=== PATIENT | female | born 1985 | race American Indian/Alaskan Native ===

== ENCOUNTER 2020-07-24 16:21 | Outpatient (CLI) | payer MEDICAID ==
[2020-07-24 18:46] VITALS: BP 114/61
[2020-07-24 19:08] LABS: Basophils % (Auto) 0.2 % (0.0-1.8); Eosinophils # (Auto) 0.1 K/mm3 (0.0-0.4); Hematocrit 29.4 % (30.3-42.9); Hemoglobin 9.8 gm/dl (10.1-14.3); Lymphocytes # (Auto) 1.2 K/mm3 (1.2-5.4); Lymphocytes % (Auto) 18.6 % (13.4-35.0); Mean Corpuscular HGB Conc 33 % (30-34); Mean Corpuscular Volume 86 fl (79-97); Monocytes # (Auto) 0.5 K/mm3 (0.0-0.8); Monocytes % (Auto) 7.8 % (0.0-7.3); Platelet Count 255 K/mm3 (140-440); Red Blood Count 3.42 M/mm3 (3.65-5.03); Red Cell Distribution Width 13.2 % (13.2-15.2)
--- NOTE | 2020-07-24 20:01 | Ultrasound Report ---
US OB BPP WO NON-STRESS US OB LIMITED INDICATION / CLINICAL INFORMATION: BPP and SAULO. COMPARISON: None available. FINDINGS: breathing movement = 2 Gross body movement = 2 tone = 2 Qualitative amniotic fluid volume = 2 Total biophysical score = 8/8 Amniotic fluid index is 10.0 cm. Presentation is Cephalic. heart rate is 144 beats per minute. IMPRESSION: biophysical profile = 8/8 Amniotic fluid index 10.0 cm, within normal limits Signer Name: Kaushal Hernandez MD Signed: 07/24/2020 7:57 PM Workstation Name: [id number]
--- NOTE | 2020-07-24 23:08 | Event Note ---
Date: 07/24/20 Term pt here to rule out labor per nurse report. Pt was 3cm in clinic and she is unchanged and station -3. pt allowed to ambulate and BPP/SAULO and CBC done and all wnl. Pt reassured that she is not rupture and currently not in labor. Labor precaution given and pt with reactive NST and pt desires . Pt discharged home.
== END 2020-07-24 19:55 | disposition home or self-care (01) ==
LOC: TRG 16:21 → APU 16:23 → TRG 18:15
PROVIDERS: ATTEND Obstetrics & Gynecology
DX: O62.4 Hypertonic, incoordinate, and prolonged uterine contractions (principal); Z3A.37 37 weeks gestation of pregnancy
CPT/HCPCS: 36415; 59025; 76815; 76819; 84112; 85025

== ENCOUNTER 2020-07-26 12:49 | Inpatient (IN) | payer MEDICAID ==
[2020-07-26] MEDS ORDERED: ePHEDrine SULFATE 50 MG/1 ML INJ IV PRN (14:25)
[2020-07-26] MEDS ORDERED: TERBUTALINE 1 MG/1 ML INJ SUB-Q PRN (14:25)
[2020-07-26] MEDS ORDERED: AMPICILLIN/NS 2 GM/100 ML 2 GM/100 ML BAG IV ONE (14:25)
[2020-07-26] MEDS ORDERED: BUTORPHANOL 2 MG/1 ML INJ IV PRN (14:30)
[2020-07-26] MEDS ORDERED: LACTATED RINGERS 1,000 ML IV SCH (14:30)
[2020-07-26] MEDS ORDERED: OXYTOCIN DRIP 30,000 MILLIUNITS/500 ML BAG IV ONE (15:23)
[2020-07-26 15:55] LABS: Hematocrit 30.1 % (30.3-42.9); Mean Corpuscular HGB Conc 33 % (30-34); Mean Corpuscular Volume 87 fl (79-97); Platelet Count 234 K/mm3 (140-440); Red Blood Count 3.47 M/mm3 (3.65-5.03); Red Cell Distribution Width 13.3 % (13.2-15.2)
[2020-07-26] MEDS ORDERED: OXYTOCIN DRIP 30 UNITS/500 ML BAG IV SCH (18:00)
--- NOTE | 2020-07-26 19:41 | History and Physical Report ---
History of Present Illness Date of examination: 07/26/20 Date of admission: 07/26/20 15:50 Chief complaint: labor pains History of present illness: Early entry to care at 5 3/7 weeks to [employer] [facility] [employer]. 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 History of for breech with successful . Past History Past Medical History: no pertinent history Past Surgical History: section, other (jaw surgery) [employer] History: abnormal PAP smear (LGSIL, +HPV), herpes Family/Genetic History: cancer (breast - mother) Social history: no significant social history, single - Obstetrical History Expected Date of Delivery: 08/11/20 Actual Gestation: 37 Week(s) 5 Day(s) : 5 Para: 3 Hx # Term Pregnancies: 3 Number of Pregnancies: 0 Spontaneous Abortions: 1 Induced : 0 Number of Living Children: 3 #1 Gender: Female year: 2,[birth year] Birthweight: 3.374 kg Method of Delivery: Vaginal Gestational age at delivery: 40 Complications: none #2 Infant Gender: Female year: 2,018 Birthweight: 2.92 kg Method of Delivery: Gestational age at delivery: 40 Complications: none #3 Gender: Male year: 2,019 Birthweight: 3.657 kg Method of Delivery: Gestational age at delivery: 40 Complications: none Medications and Allergies Allergies Allergy/AdvReac Type Severity Reaction Status Date / Time No Known Allergies Allergy Verified 07/24/20 16:41 Home Medications Medication Instructions Recorded Confirmed Last Taken Type Valtrex 1 tab PO Q8H 07/24/20 07/24/20 07/22/20 History Active Meds: Active Medications Butorphanol Tartrate (Butorphanol 2 Mg/1 Ml Inj) 2 mg IV Q2H PRN PRN Reason: Pain, Moderate(4-6) LABOR PAIN Ephedrine Sulfate (Ephedrine Sulfate 50 Mg/1 Ml Inj) 10 mg IV Q2M PRN PRN Reason: Hypotension Lactated Ringer's (Lactated Ringers) 1,000 mls @ 125 mls/hr IV DIRECT NICOLETTE Last Admin: 07/26/20 15:35 Dose: 125 mls/hr Documented by: Oxytocin/Sodium Chloride (Pitocin/Ns 30 Unit/500ml) 30 units in 500 mls @ 4 mls/hr IV TITR NICOLETTE; Protocol Last Titration: 07/26/20 16:45 Dose: 10 ml/hr, 10 mls/hr Documented by: Mineral Oil (Mineral Oil 30 Ml Oral Liqd) 30 ml PO QHS PRN PRN Reason: Constipation Terbutaline Sulfate (Terbutaline 1 Mg/1 Ml Inj) 0.25 mg SUB-Q ONCE PRN PRN Reason: Hyperstimulation/Hypertonicity Stop: 08/19/20 14:24 Review of Systems All systems: negative - Vital Signs Vital signs: Vital Signs Pulse Pulse Ox 98 H 97 07/26/20 13:21 07/26/20 13:21 Temp Pulse Resp BP Pulse Ox 98.4 F 101 H 17 110/57 100 07/26/20 19:27 07/26/20 19:34 07/26/20 19:27 07/26/20 19:27 07/26/20 19:34 - Physical Exam Breasts: Positive: normal Cardiovascular: Regular rate Lungs: Positive: Clear to auscultation, Normal air movement Abdomen: Positive: normal appearance, soft Genitourinary (Female): Positive: normal external genitalia, normal perenium Vagina: Positive: normal moisture, other (feels warm on SVE) Uterus: Positive: enlarged Anus/Rectum: Positive: normal perianal skin Extremities: Positive: normal - Obstetrical FHR: category 2 FHR comments: FHR up to 180s after AROM. Back down to 150s-160s with maternal position change. Mild variable decels noted after AROM. Uterine Contraction Monitor Mode: External Cervical Dilatation: 6.5 (Moderate amount of clear fluid upon AROM at 19:29) Cervical Effacement Percentage: 70 station: -2 Uterine Contraction Frequency (min): 3 Uterine Contraction Duration: 60 Uterine Contraction Pattern: Regular Uterine Tone Measurement Phase: Resting Uterine Contraction Intensity: Moderate Results Result Diagrams: 07/26/20 15:00 Abnormal lab results 07/26/20 Range/Units 15:00 RBC 3.47 L (3.65-5.03) M/mm3 Hgb 10.0 L (10.1-14.3) gm/dl Hct 30.1 L (30.3-42.9) % All other labs normal. Assessment and Plan A: IUP at 37 5/7 weeks Category 2 tracing Active Labor Tachycardia GBS positive P: Admit to L&D per routine orders AROM Continue Pitocin Augmentation Multiple Maternal Position Changes Prepare for Epidural Anesthesia
[2020-07-26] MEDS ORDERED: AMPICILLIN/NS 1 GM/50 ML 1 GM/50 ML BAG ONE (19:45)
[2020-07-26] MEDS ORDERED: fentaNYL 100 MCG/2 ML INJ IV ONE (19:51)
[2020-07-26] MEDS ORDERED: AMPICILLIN/NS 1 GM/50 ML 1 GM/50 ML BAG IV SCH (20:00)
[2020-07-26] MEDS ORDERED: WITCH HAZEL/ GLYCERIN PAD TP PRN (20:59)
[2020-07-26] MEDS ORDERED: oxyCODONE /ACETAMINOPHEN 5-325MG TAB PO PRN (20:59)
[2020-07-26] MEDS ORDERED: PROMETHAZINE 25 MG TAB PO PRN (20:59)
[2020-07-26] MEDS ORDERED: LANOLIN/ZINC/DIMETHICONE (LANSINOH) 7 GM TP PRN (20:59)
[2020-07-26] MEDS ORDERED: diphenhydrAMINE 25 MG CAP PO PRN (20:59)
--- NOTE | 2020-07-26 21:09 | Procedure Note ---
OB Delivery Note - Delivery Date of Delivery: 07/26/20 (2030) Surgeon: LIANG ALBERT Estimated blood loss: 100cc - Vaginal Delivery presentation: vertex Delivery position: OA Intrapartum events: mult.variable deceleratio Delivery induction: none Delivery augmentation: rupture of membranes, pitocin Delivery monitor: external FHT, external uterine Route of delivery: Delivery placenta: spontaneous, other (succenturiate lobe) Delivery cord: 3 umbilical vessels Episiotomy: none Delivery laceration: none Anesthesia: none Delivery comments: of a live 6'15 female with Apgars of 8 and 9 under IV pain control over an intact perineum at 20:31 on 07/26/2020. directly to maternal abd/chest, skin to skin contact. Delayed cord clamping; cord double clamped and cut by father of baby. Spontaneous delivery of placenta complete and intact with Reeves side presenting at 20:45. Fundus is firm and midline, located 4 below the U. Lochia is scant. Cord blood collected. Placenta to pathology. GBS prophylaxis x 2 doses. - A at 1 minute: 8 at 5 minutes: 9 Gender: Female (6'15)
[2020-07-26] MEDS ORDERED: MINERAL OIL 30 ML ORAL LIQD PO PRN (22:00)
[2020-07-27] MEDS: IBUPROFEN 600 MG TAB PO SCH ×3 (06:32→17:35)
[2020-07-27 08:52] LABS: Hematocrit 26.9 % (30.3-42.9); Hemoglobin 8.9 gm/dl (10.1-14.3)
--- NOTE | 2020-07-27 09:30 | Progress Note ---
Assessment and Plan PPD # 1 A: S/P Asymptomatic anemia P: Continue routine pp orders D/C home tomm if stable Subjective - Subjective Date of service: 07/27/20 Principal diagnosis: Patient reports: appetite normal, voiding normally, pain well controlled, ambulating normally [place]: doing well, bottle feeding Objective - Vital Signs Latest vital signs: Vital Signs Temp Pulse Resp BP BP Pulse Ox 07/27/20 08:05 97.3 F L 65 20 109/61 97 07/27/20 04:15 97.6 F 63 20 115/78 98 07/27/20 04:14 97.6 F 63 20 115/78 98 07/26/20 23:14 100.2 F H 139/74 07/26/20 22:20 100 H 88 07/26/20 22:18 88 07/26/20 22:15 78 127/63 100 07/26/20 22:10 71 99 07/26/20 22:05 82 99 07/26/20 22:00 89 117/61 99 07/26/20 21:55 86 99 07/26/20 21:50 96 H 99 07/26/20 21:45 84 114/63 100 07/26/20 21:40 90 98 07/26/20 21:35 89 100 07/26/20 21:31 86 104/63 07/26/20 21:30 88 99 07/26/20 21:25 87 99 07/26/20 21:20 81 99 07/26/20 21:16 90 93 07/26/20 21:15 91 H 120/63 92 07/26/20 20:28 105 H 96 07/26/20 20:23 93 H 96 07/26/20 20:18 87 95 07/26/20 20:16 98.1 F 95 H 18 147/74 96 07/26/20 20:14 89 94 07/26/20 20:13 98 H 100 07/26/20 20:08 92 H 99 07/26/20 20:03 110 H 99 07/26/20 19:58 94 H 100 07/26/20 19:53 103 H 100 07/26/20 19:49 102 H 147/74 07/26/20 19:48 92 H 73 L 07/26/20 19:39 103 H 100 01/20/21 19:36 89 91 07/26/20 19:34 101 H 100 20/21 19:29 94 H 100 20/21 19:24 108 H 100 2021 19:19 97 H 100 21 19:14 98 H 100 21 19:09 96 H 100 21 19:04 96 H 100 20/21 18:59 99 H 98 2021 18:54 99 H 100 2021 18:49 104 H 100 2021 18:44 92 H 100 2021 18:43 104 H 118/59 21 18:39 88 99 21 18:34 95 H 99 07/26/20 18:29 94 H 100 21 18:24 102 H 100 21 18:19 92 H 100 07/26/20 18:14 101 H 100 2021 18:09 100 H 98 07/26/20 18:04 101 H 100 07/26/20 17:59 101 H 99 21 17:54 99 H 100 21 17:49 99 H 100 21 17:44 90 100 21 17:39 94 H 99 21 17:34 92 H 99 07/26/20 17:29 94 H 99 21 17:24 92 H 99 07/26/20 17:20 98 H 84 21 17:19 93 H 99 21 17:09 95 H 100 07/26/20 17:04 99 H 99 07/26/20 17:00 98.1 F 14 21 16:59 92 H 99 2021 16:54 99 H 98 20/21 16:49 96 H 98 20/21 16:44 92 H 99 2021 16:39 99 H 97 20/21 16:34 91 H 100 07/26/21 16:29 96 H 98 21 16:24 97 H 98 20/21 16:19 89 99 20/21 16:14 99 H 99 2021 16:09 103 H 98 21 16:04 99 H 98 07/26/20 15:59 97 H 99 07/26/20 15:54 104 H 99 07/26/20 15:49 97 H 99 07/26/20 15:44 95 H 100 07/26/20 15:39 94 H 99 07/26/20 15:34 107 H 100 07/26/20 15:29 102 H 98 07/26/20 15:24 105 H 99 07/26/20 15:19 97 H 99 07/26/20 15:14 104 H 98 07/26/20 15:09 98 H 99 07/26/20 15:01 104 H 97 07/26/20 14:56 101 H 98 07/26/20 14:51 104 H 97 07/26/20 14:46 109 H 96 07/26/20 14:41 104 H 96 07/26/20 14:36 101 H 99 07/26/20 14:31 116 H 99 07/26/20 14:26 107 H 99 07/26/20 14:21 102 H 98 07/26/20 14:16 101 H 98 07/26/20 14:11 100 H 97 07/26/20 14:06 100 H 96 07/26/20 14:01 88 99 07/26/20 13:56 102 H 98 07/26/20 13:51 97 H 99 07/26/20 13:46 95 H 97 07/26/20 13:41 109 H 99 07/26/20 13:36 95 H 98 07/26/20 13:31 98 H 99 07/26/20 13:26 87 98 07/26/20 13:22 98.3 F 104 H 20 131/60 131/60 98 07/26/20 13:21 98 H 97 Intake and Output 07/26/20 07/27/20 07/27/20 22:59 06:59 14:59 Intake Total 6 420 Output Total 500 Balance 6 -80 Intake: IV 6 PITOCin/NS 30 UNIT/500ML 6 30 units In 500 ml @ 4 mls/hr IV TITR NICOLETTE Rx#: [id number] Intake, Free Water 420 Output: Urine 500 Void 500 Other: Total, Output Amount 500 Estimated Blood Loss 100 - Exam Breasts: Present: normal Abdomen: Present: normal appearance, normal bowel sounds Vulva: both: normal Uterus: Present: normal, firm, fundal height below umbilicus Extremities: Present: normal - Labs Labs: Abnormal lab results 07/26/20 07/27/20 Range/Units 15:00 08:42 RBC 3.47 L (3.65-5.03) M/mm3 Hgb 10.0 L 8.9 L (10.1-14.3) gm/dl Hct 30.1 L 26.9 L (30.3-42.9) %
[2020-07-27] MEDS: FERROUS SULFATE 325 MG TAB PO SCH (10:04)
[2020-07-27] MEDS: PRENATAL VIT27-FE FUMARATE-FOLIC ACID VIT TAB PO SCH (10:04)
[2020-07-28] MEDS: IBUPROFEN 600 MG TAB PO SCH ×2 (02:25→10:39)
[2020-07-28] MEDS: PRENATAL VIT27-FE FUMARATE-FOLIC ACID VIT TAB PO SCH (10:39)
[2020-07-28] MEDS: FERROUS SULFATE 325 MG TAB PO SCH (10:39)
--- NOTE | 2020-07-28 11:50 | Discharge Summary ---
Providers - Providers Date of Admission: 07/26/20 15:50 Date of discharge: 07/28/20 Attending physician: DAVID POLLACK Primary care physician: DAVID POLLACK Hospitalization Reason for admission: active labor Delivery: Episiotomy: none Laceration: none Other procedures: none complications: none Discharge diagnosis: IUP at term delivered baby: female Hospital course: See admission H & P; OB delivery summary and PP progress notes Condition at discharge: Good Disposition: DC-01 TO HOME OR SELFCARE - Discharge Diagnoses (1) Normal spontaneous vaginal delivery Status: Acute (2) Anemia Status: Acute Qualifiers: Anemia type: iron deficiency Comment: Asymptomatic Plan - Provider Discharge Summary Activity: routine, no sex for 6 weeks, no heavy lifting 4 weeks, no strenuous exercise Diet: other (Iron rich diet) Instructions: routine Additional instructions: [] Smoking cessation referral if applicable(refer to patient education folder for contact #) [] Refer to [facility] Booklet Call your doctor immediately for: * Fever > 100.5 * Heavy vaginal bleeding ( >1 pad per hour) * Severe persistent headache * Shortness of breath * Reddened, hot, painful area to leg or breast * Drainage or odor from incision. * Keep incision clean and dry at all times and follow doctor's instructions regarding bathing/showering - Follow up plan Follow up: DAVID POLLACK MD [Primary Care Provider] - 6 Weeks Forms: [facility] Discharge Summary
[2020-07-28 16:12] VITALS: BP 115/62
== END 2020-07-28 13:50 | disposition home or self-care (01) | DRG 774 ==
LOC: TRG 12:49 → APU 12:52 → LD 15:47 → APU 15:50 → TRG 15:50 → LD 16:26 → OB 23:05
PROVIDERS: ADMIT Obstetrics & Gynecology; ATTEND Obstetrics & Gynecology
PROC: 10E0XZZ Delivery of Products of Conception, External Approach (ICD-10-PCS; principal; 2020-07-26)
DX: O99.824 Streptococcus B carrier state complicating childbirth (principal); O98.52 Other viral diseases complicating childbirth; Z3A.37 37 weeks gestation of pregnancy; Z37.0 Single live birth; B00.9 Herpesviral infection, unspecified; Z80.3 Family history of malignant neoplasm of breast; O76 Abnormality in fetal heart rate and rhythm complicating labor and delivery; O90.81 Anemia of the puerperium; D64.9 Anemia, unspecified
CPT/HCPCS: 36415; 59025; 76815; 76819; 84112; 85014; 85018; 85025; 85027; 86592; 86850; 86900; 86901; G0378; A6250; J0290; J2590; J3010; J7120